=== PATIENT | female | born 1965 | race Caucasian/White ===

== ENCOUNTER → 2016-07-25 | Outpatient (CLI) | payer MEDICARE, MEDICAID | LOC: RAD 07:49 | PROVIDERS: ATTEND Family Medicine | DX: Z12.31 Encounter for screening mammogram for malignant neoplasm of breast (principal) ==

== ENCOUNTER → 2016-08-22 | Outpatient (CLI) | payer MEDICARE, MEDICAID ==
[~2016-08-22] MED LIST: AMT50T PO; ATOR10TA; ATOR40TA2 PO; Amitriptyline; CEFD300C PO; CLON0.5T3 PO; DIPH25CA79 PO; DOCU100C8 PO; ESZO3TAB11 PO; IBUP-1772 PO; LORA1TAB PO; Lunesta; MIRALAX 17 GM P17 GM PO; NITR100C3 PO; OMEP2.5S; OMEP20CA6 PO; ONDN4T PO; PHN100C PO; QTP100T PO; miralax; seroquel
[2016-08-22 14:29] VITALS: BP 132/78
--- NOTE | 2016-08-22 14:29 | Urgent Care T Sheet Gen (E) ---
Intake General Temperature (Fahrenheit): 98.2 Pulse: 106 Blood Pressure Systolic: 132 Blood Pressure Diastolic: 78 Respirations: 20 SPO2: 98 Description of Symptoms Patient presents with a red, swollen, warm and tender R pointer finger. States she bumped it on Thursday and it has been getting worse with time. States she poked it last night and got some purulent drainage to come out. No fever. No history. History of Present Illness Allergies: Coded Allergies: Sulfa (Sulfonamide Antibiotics) (Verified Allergy, Unknown, 09/19/15) aspirin (Verified Allergy, Unknown, 09/19/15) clindamycin (Verified Allergy, Unknown, 09/19/15) diazepam (Verified Allergy, Unknown, 09/19/15) gabapentin (Verified Allergy, Unknown, 09/19/15) hydromorphone HCl (Verified Allergy, Unknown, 09/19/15) levofloxacin (Verified Allergy, Unknown, 09/19/15) morphine (Verified Allergy, Unknown, 09/19/15) neomycin (Verified Allergy, Unknown, 09/20/15) vancomycin (Verified Allergy, Unknown, 09/20/15) Home Meds Active Scripts Clonazepam 0.5 Mg Tablet0.5 Mg PO BID #10 TAB Ref 0 Prov:LEISA BENOIT MD 09/21/15 Cefdinir 300 Mg [id number] Mg PO BID Infection #20 CAP Ref 0 Prov:LEISA BENOIT MD 09/21/15 Ibuprofen 600 Mg [id number] Mg PO TID PRN PAIN #0 TAB Ref 0 Prov:LEISA BENOIT MD 09/21/15 Phenytoin (Dilantin ER)100 Mg Xes888 Mg PO DAILY #30 Prov:MARIELOS MOORE MD 12/08/11 Reported Medications Docusate Sodium 100 Mg [id number] Mg PO BID Constipation Ref 0 09/20/15 Amitriptyline HCl (Elavil)50 Mg Tab50 Mg PO HS 03/06/12 Polyethylene Glycol (Miralax 17 Gm Packet)17 Gm Pack17 Gm PO DAILY 03/06/12 Quetiapine Fumarate (Seroquel)100 Mg [id number] Mg PO HS 03/06/12 Omeprazole (Prilosec)20 Mg Capsule.dr20 Mg PO DAILY 03/06/12 Atorvastatin (Lipitor)40 Mg Mbipsl89 Mg PO HS 03/06/12 Diphenhydramine HCl (Benadryl)25 Mg Xyhoaob45 Mg PO BID 12/08/11 Respiratory Constitutional Symptoms: No syptoms reported EENTM: No symptoms reported Respiratory: No symptoms reported Cardiovascular: No symptoms reported Skin: Change in color Lesions All Other Systems Reviewed Remaining Systems: All other systems reviewed with negative findings Past Pwlixog-Suixnx-Rfzgql Hx Patient's Social History Alcohol Use: Denies Use Smoking Status: Never smoker Infectious Disease Exposure: No Recent foreign travel: No Surgeries/Hospitalizations Hospitalization/Surgery Hx: Hysterectomy in 1997, Gallbladder, 1998, Laparoscopic fundoplication 2001, Urostomy, july 20 2000, 2002, october 2003, Revisions to correct hernias with urostomy in jun, october 2005, october 2007,december 2008, jan, 2009, november 1009, april and 02-26-12 history of interstitial cystitis, Seizure disorder, migraines, anxiety Respiratory Respiratory History: None Cardiovascular Cardiovascular History: Hypercholesterolemia Neuro/Muscular Neuro/Muscular History: Migraine, Seizures Genitouinary Genitourinary History: Other, see comments Comment: inerstitial cystitis with urostomy Gastrointestinal GI/Endocrine History: Gallbladder problems, Nausea, Vomiting, Constipation, Laxative use, Other, see comment Comment: multiple hernia revisions/repairs Diabetes Diabetes: No HEENT Hearing Impaired: None Integumentary Integumentary History: None Cancer History of Cancer?: No Psychosocial Behavior Disorders: Anxiety Blood Transfusions Hx of Blood transfusions: No Physical Exam Physical Exam General Appearance: WD/WN No apparent distress Skin Exam: Other (redness, warmth and edema along the medial aspect of the R pointer fingernail. pain with palpation. no purulent material is seen. ) Extremity Exam: Full range of motion (in R pointer finger) Neurologic/Psychiatric Exam: No sensory deficits Departure Urgent Care Impression Impression: Primary Impression: Paronychia of right index finger Departure Disposition: 01 HOME OR SELF-CARE Condition: Stable Referrals: Gurdeep Duran MD (PCP) Additional Instructions: I have started the patient on Keflex 500mg QID x 7 days for treatment Instructed her to soak the finger in Epsom salt and warm water. Don't poke the finger anymore. Return as needed Patient understands DC instructions. All questions were answered. End of report . DEA MANSFIELD Aug 22, 2016 14:29
== END ==
LOC: MHUC 14:11
PROVIDERS: ATTEND Physician Assistant
DX: L03.011 Cellulitis of right finger (principal)
CPT/HCPCS: 99212

== ENCOUNTER 2016-09-27 05:49 | Emergency (ER) | payer MEDICARE, MEDICAID ==
[~2016-09-27] VITALS: Ht 167.6 cm; Wt 93.0 kg
--- OUTSIDE RECORDS SUMMARY | 2016-09-27 06:01 | XMS REPORT | Referral Summary ---
Author Organization Unknown Address Unknown Phone Unavailable Care Team Providers Care Customer Care Coordinator Name Role Phone Keith Duran PCP [phone] Encounter VC Date(s): 06/28/14 - 07/01/14 Via [facility] [address] [place] [address] [address] [phone] Discharge Disposition: Home or Self Care Attending Physician: Francisco Javier Wise MD Admitting Physician: Francisco Javier Wise MD Vital Signs Most recent to 1 oldest [Reference Range]: Temperature Oral 36.6 degC [35.8-37.3 degC] (07/01/14 11:00 AM) Peripheral Pulse 69 bpm Rate [60-100 bpm] (07/01/14 11:00 AM) Heart Rate Monitored 76 bpm [60-100 bpm] (07/01/14 4:45 AM) Respiratory Rate 16 br/min [14-20 br/min] (07/01/14 11:00 AM) Blood Pressure 113/75 mmHg [90-140/60-90 mmHg] (07/01/14 11:00 AM) Most recent to 1 oldest [Reference Range]: SpO2 99 % (07/01/14 11:00 AM) Problem List Condition Effective Dates Status Health Status Informant Acute Active pain(Confirmed) At risk of pressure Active sore(Confirmed) Bowel Active dysfunction(Confirme d)1 Cystitis, Active patient interstitial(Confirm ed) Fluid Active imbalance(Confirmed) 2 Obesity(Confirmed) Active patient PTSD (post-traumatic Active patient stress disorder)(Confirmed) Seizures(Confirmed) Active patient 1Problem added automatically by system based on initiation of Bowel Dysfunction Plan of [id number] added automatically by system based on initiation of Fluid Volume Imbalance Plan of Care Allergies, Adverse Reactions, Alerts Substance Reaction Severity Status aspirin gi upset* Active ciprofloxacin doesn t work Active clindamycin uNspecfied Active gabapentin uNspecfied Active HYDROmorphone can take iv not po Active pill does not work levofloxacin doesn t work Active morphine skin crawl Active sulfamethoxazole-trimetho Eczema (rash) Active prim Medications amitriptyline 50 mg, Oral, Bedtime (once a day), 0 Refill(s) Start Date: 06/28/14 Status: OrderedColace 100 mg oral capsule 1 caps, Oral, BID, # 30 caps, 0 Refill(s) Start Date: 07/01/14 Stop Date: 07/16/14 Status: OrdereddiphenhydrAMINE 50 mg, Oral, Bedtime (once a day), 0 Refill(s) Start Date: 06/28/14 Status: Orderedibuprofen 800 mg oral tablet 1 tabs, Oral, q8hr, # 21 tabs, 0 Refill(s) Start Date: 07/01/14 Stop Date: 07/08/14 Status: OrderedLipitor 40 mg, Oral, Bedtime (once a day), 0 Refill(s) Start Date: 06/28/14 Status: OrderedMetamucil 525 mg oral capsule 2 caps, Oral, BID, as needed for constipation, X 30 days, # 120 caps, 0 Refill(s ) Start Date: 07/01/14 Stop Date: 07/31/14 Status: OrderedMiraLax oral powder for reconstitution 17 g, Oral, Daily, Constipation, # 255 g, 0 Refill(s) Start Date: 07/01/14 Stop Date: 07/09/14 Status: OrderedMiraLax oral powder for reconstitution 17 g, Oral, Daily, Constipation, dissolve in water before taking, # 255 g, 0 Refill(s) Special Instructions: dissolve in water before taking Start Date: 07/01/14 Stop Date: 07/09/14 Status: OrderedNorco 7.5 mg-325 mg oral tablet 2 tabs, Oral, q4hr, Pain Moderate (4-6), # 30 tabs, 0 Refill(s) Start Date: 07/01/14 Stop Date: 07/09/14 Status: Orderedomeprazole 20 mg, Oral, Daily, 0 Refill(s) Start Date: 06/28/14 Status: Orderedphenytoin 300 mg, Oral, Daily, 0 Refill(s) Start Date: 06/28/14 Status: Orderedscopolamine 1.5 mg transdermal film, extended release 1 patches, Topical, q3day, # 4 patches, 0 Refill(s) Start Date: 07/01/14 Stop Date: 07/07/14 Status: OrderedSEROquel 100 mg, Oral, Bedtime (once a day), 0 Refill(s) Start Date: 06/28/14 Status: OrderedZofran ODT 4 mg oral tablet, disintegrating 1 tabs, Oral, q6hr, Nausea, # 30 tabs, 0 Refill(s) Start Date: 07/01/14 Status: Ordered Results Hematology Most recent to 1 oldest [Reference Range]: WBC [4.8-10.8 K/uL] 7.2 K/uL (07/01/14 5:33 AM) RBC [4.00-5.20 M/uL] 4.30 M/uL (07/01/14 5:33 AM) Hgb [12.0-16.0 12.7 gm/dL gm/dL] (07/01/14 5:33 AM) Hct [37.0-47.0 %] 38.3 % (07/01/14 5:33 AM) MCV [82.0-99.0 fL] 89.1 fL (07/01/14 5:33 AM) MCH [27.0-32.0 pg] 29.5 pg (07/01/14 5:33 AM) MCHC [32.0-36.0 33.2 gm/dL gm/dL] (07/01/14 5:33 AM) RDW [11.5-14.5 %] 13.0 % (07/01/14 5:33 AM) Platelet [150-400 259 K/uL K/uL] (07/01/14 5:33 AM) MPV [9.4-12.4 fL] 10.1 fL (07/01/14 5:33 AM) Immature 0.4 % Granulocytes (06/29/14 5:46 AM) [0.0-1.0 %] Neutrophils [51-75 74 % %] (06/29/14 5:46 AM) Lymphocytes [20-46 16 % %] *LOW* (06/29/14 5:46 AM) Monocytes [4-11 %] 9 % (06/29/14 5:46 AM) Eosinophils [0-4 %] 1 % (06/29/14 5:46 AM) Basophils [0-2 %] 0 % (06/29/14 5:46 AM) Neutro Absolute 5.11 THOUS [1.90-7.00 THOUS] (06/29/14 5:46 AM) Lymph Absolute 1.11 THOUS [0.80-3.30 THOUS] (06/29/14 5:46 AM) [place] Absolute 0.60 THOUS [0.30-1.00 THOUS] (06/29/14 5:46 AM) Eos Absolute 0.05 THOUS [0.00-0.50 THOUS] (06/29/14 5:46 AM) Baso Absolute 0.02 THOUS [0.00-0.20 THOUS] (06/29/14 5:46 AM) Nucleated RBC 0.0 /100 WBC Automated [0 /100 (06/29/14 5:46 AM) WBC] Chemistry Most recent to 1 oldest [Reference Range]: Sodium Lvl [136-144 141 mEq/L mEq/L] (07/01/14 5:33 AM) Potassium Lvl 3.1 mEq/L [3.6-5.1 mEq/L] *LOW* (07/01/14:33 AM) Chloride [99-109 105 mEq/L mEq/L] (07/01/14 5:33 AM) CO2 [22-32 mEq/L] 30 mEq/L (07/01/14 5:33 AM) AGAP [3-20] 6 (07/01/14 5:33 AM) BUN [4-20 mg/dL] 7 mg/dL (07/01/14 5:33 AM) Glucose Lvl [70-100 118 mg/dL mg/dL] *HI* (07/01/14 5:33 AM) Creatinine Lvl 0.42 mg/dL [0.44-1.03 mg/dL] *LOW* (07/01/14 5:33 AM) eGFR [>60] >60 2 (07/01/14 5:33 AM) Calcium Lvl 8.7 mg/dL [8.6-10.0 mg/dL] (07/01/14 5:33 AM) Albumin Lvl [3.5-4.8 3.3 gm/dL gm/dL] *LOW* (07/01/14 5:33 AM) Magnesium Lvl 1.9 mg/dL [1.8-2.5 mg/dL] (07/01/14 5:33 AM) Phosphorus [2.4-4.7 3.2 mg/dL 1 mg/dL] (07/01/14 5:33 AM) 1Result Comment: High dosages of liposomal Amphotericin B (AmBisome) therapy or other drug preparations that use a liposomal envelope to facilitate drug delivery may cause falsely elevated results for phosphorus.2Result Comment: Multiply eGFR results by 1.21 for race. Immunizations No data available for this section Procedures Procedure Date Related Diagnosis Body Site Abdominal hernia Abdominal hysterectomy gall bladder Laparoscopic fundoplication Urostomy - stoma Social History No data available for this section Assessment and Plan No data available for this section
--- NOTE | 2016-09-27 06:22 | NUR ---
Pt's mom is now here
[2016-09-27] MEDS ORDERED: BUSP15TA55 PO (06:29)
[2016-09-27] MEDS ORDERED: FAMO-118 PO (06:29)
[2016-09-27] MEDS ORDERED: AZIT250T81 PO (06:34)
[2016-09-27 06:56] VITALS: BP 153/71
== END 2016-09-27 06:58 | disposition home or self-care (01) ==
LOC: EDUNIT# 05:49 → ED 05:57
DX: J40 Bronchitis, not specified as acute or chronic (principal)
CPT/HCPCS: 99282; 99283

== ENCOUNTER → 2016-09-29 | Outpatient (REF) | payer MEDICARE, MEDICAID ==
[~2016-09-29] MED LIST changes: +AZIT250T81 PO; +BUSP15TA55 PO; +FAMO-118 PO
== END ==
LOC: LAB 14:40
PROVIDERS: ATTEND Family Medicine
DX: J40 Bronchitis, not specified as acute or chronic (principal)
CPT/HCPCS: 87486; 87581; 87633; 87798